=== PATIENT | female | born 1980 | race Caucasian/White ===

== ENCOUNTER → 2017-03-09 | Outpatient (CLI) | payer SELFPAY | LOC: LAB 09:22 | PROVIDERS: ATTEND Obstetrics & Gynecology | DX: O09.521 Supervision of elderly multigravida, first trimester (principal); O09.891 Supervision of other high risk pregnancies, first trimester; Z36 Encounter for antenatal screening of mother; Z3A.17 17 weeks gestation of pregnancy | CPT/HCPCS: 36415; 86850; 87088 ==

== ENCOUNTER 2019-04-24 07:11 | Inpatient (IN) ==
[2019-04-25] MEDS ORDERED: MISOPROSTOL 25 MCG VAGINAL SCH
[2019-04-25] MEDS ORDERED: METHYLERGONOVINE MALEATE 0.2 MG/1 ML VIAL IM PRN (00:01)
[2019-04-25] MEDS ORDERED: FAMOTIDINE 20 MG/2 ML VIAL IVP PRN ×2 (00:01)
[2019-04-25] MEDS ORDERED: Carboprost Inj 250 MCG/ML AMP IM PRN (00:01)
[2019-04-25] MEDS ORDERED: Oxytocin 20 Units + LR 20 UNIT/1,000 ML BAG IV SCH ×2 (00:01→11:30)
[2019-04-25] MEDS ORDERED: Phenylephrine Inj 50 MCG in Sodium Chloride 0.9% vial 0.5 ML IVP PRN (00:01)
[2019-04-25] MEDS ORDERED: fentaNYL Inj 100 MCG/2 ML VIAL IV PRN (00:01)
[2019-04-25] MEDS ORDERED: CefOXitin Inj 2 GM in Sodium Chloride 0.9% 100 ML IV PRN (00:01)
[2019-04-25] MEDS ORDERED: BUTORPHANOL TARTRATE 2 MG/1 ML VIAL IVP PRN (00:01)
[2019-04-25] MEDS ORDERED: Lidocaine 1% 10 MG/ML - 20 ML VIAL SUBCUT PRN (00:01)
[2019-04-25] MEDS ORDERED: ePHEDrine Inj 50 MG/ML AMP IVP PRN (00:01)
[2019-04-25] MEDS ORDERED: Zolpidem Tab 5 MG TAB PO PRN (00:01)
[2019-04-25] MEDS ORDERED: ONDANSETRON 4 MG/2 ML VIAL IVP PRN (00:01)
[2019-04-25] MEDS ORDERED: Naloxone Inj 0.01 MG in Sodium Chloride 0.9% vial 1 ML IVP PRN (00:01)
[2019-04-25] MEDS ORDERED: CALCIUM CARBONATE 500 MG (TUMS) CHEWABLE TABLET PO PRN (00:01)
[2019-04-25] MEDS ORDERED: diphenhydrAMINE 50 MG/1 ML VIAL IVP PRN (00:01)
[2019-04-25] MEDS ORDERED: CITRIC ACID/SODIUM CITRATE 30 ML CUP PO PRN (00:01)
[2019-04-25] MEDS ORDERED: Metoclopramide Inj 10 MG/2 ML VIAL IV PRN (00:01)
[2019-04-25] MEDS ORDERED: TERBUTALINE SULFATE 1 MG/1 ML SDV SUBCUT PRN (00:01)
[2019-04-25] MEDS ORDERED: Nalbuphine Inj 20 MG/ML Ampule IVP PRN (00:01)
[2019-04-25] MEDS ORDERED: MISOPROSTOL 200 MCG TABLET RECTAL PRN (00:01)
[2019-04-25] MEDS ORDERED: OXYTOCIN 10 UNIT/1 ML IM PRN (00:01)
[2019-04-25] MEDS ORDERED: LIDOCAINE HCL 2 % 10 ML JELLY URO-JECT TOPICAL PRN (00:01)
[2019-04-25] MEDS ORDERED: LIDOCAINE W/ SODIUM BICARB 0.5 ML SYR SUBD PRN (00:01)
[2019-04-25] MEDS ORDERED: NALOXONE 0.4 MG/1 ML VIAL IVP PRN (00:01)
[2019-04-25 01:34] LABS: Hematocrit [HCT] 34.8 % (37.0-47.0); Hemoglobin [HGB] 11.3 g/dL (12.0-16.0); MEAN CORPUSCULAR HGB CONC 32.5 g/dL (33-37); MEAN CORPUSCULAR VOLUME 89.2 FL (81-99); MEAN PLATELET VOLUME 8.6 FL (7.4-12.2); RED BLOOD COUNT 3.9 10^6/uL (4.20-5.40)
[2019-04-25] MEDS: MISOPROSTOL VAGINAL PRN ×2 (01:44→06:59)
--- NOTE | 2019-04-25 10:19 | OB.PROGRES ---
Date of Service: 04/25/19 Time of Service: 08:00 Interval History: 38 yo at 39 1/7 weeks gestation admitted last night just after midnight for IOL 2/2 AMA. essentially uncomplicated but notable for 47 lb weight gain. She did not do a 1 hour OGTT 2/2 cost but random fasting fingerstick blood sugars have been normal. GBS negative Rh negative, did not receive rhogam as is Rh negative as well Rubella Immune H/o 5 vaginal deliveries, largest 9 lb 14 oz at 41 weeks gestation. Did require forceps with first delivery, mild shoulder dystocia with last 2. Objective - Cervical Exam Cervical Exam: 50/-2, intact, anterior, soft [place]: q3-5 mins Heart Rate: baseline 130s, mod variability, accels, no decels Heart Rate Interpretation Category: Category I - Labs CBC and BMP: 04/25/19 01:30 - Vital Signs Last Taken Vital Signs: Vital Signs - Last Taken Temperature 97.9 F 04/25/19 08:00 Pulse Rate 77 04/25/19 08:00 Respiratory Rate 14 04/25/19 08:00 Blood Pressure 91/42 04/25/19 08:00 Pulse Ox 99 04/25/19 09:00 Assessment and Plan - Patient Problems (1) Grand multipara Current Visit: Yes Status: Acute Code(s): Z64.1 - Problems related to multiparity - Assessment / Plan Additional Assessment/Plan Details: 38 yo at 39 1/7 weeks gestation by first trimester u/s, admitted for IOL 2/2 AMA. S/p cytotec 25mcg pv x2. Will start pitocin now. Continue close observation.
[2019-04-25] MEDS: Lactated Ringers-OB Dept 1,000 ML PRIMARY IV SCH ×3 (11:02→20:45)
[2019-04-25] MEDS ORDERED: BUPivacaine Inj 0.25% PF - 10ml vial ONE (14:59)
[2019-04-25] MEDS ORDERED: Chloroprocaine 3% MPF (30mg/ml) 20ml vial ONE (14:59)
[2019-04-25] MEDS ORDERED: Sodium Chloride 0.9% vial 10 ML ONE (14:59)
[2019-04-25] MEDS ORDERED: Fent/Bupiv 2mcg/0.0625% Epid 250 ML ONE (15:04)
--- NOTE | 2019-04-25 15:21 | CRNA.PROCE ---
Central Neuraxis Block Placemt - - Type of Block: Epidural Moniters Used During Block: EKG, SPO2, NIBP Positioning: Sitting Skin Prep Used: ChloroPrep Draped: Yes Skin Infiltration - Enter Amount Used in Comment Field: 1% Xylocaine (mL): Yes Number of Centimeters Catheter Threaded: 12 Bioclusive Dressing Applied: Yes Anesthesia Time - Other Weight: 95.708 kg Height: 5 ft 9 in Body Mass Index (BMI): 31.1
[2019-04-25] MEDS ORDERED: fentaNYL 2 MCG/BUPIVACAINE 0.0625%/NS 0.9% 250 ML BAG EPIDURAL SCH (15:30)
[2019-04-25] MEDS ORDERED: Tranexamic Acid 1,000 MG in Sodium Chloride 0.9% 100 ML IV PRN (17:30)
--- NOTE | 2019-04-25 21:33 | OB.PROGRES ---
Date of Service: 04/25/19 Time of Service: 21:27 Interval History: 38 yo at 39 1/7 weeks gestation admitted for IOL 2/2 AMA. She received 2 doses of cytotec 25 mcg. Pitocin was started at about 1100. She received her epidural at about 1500. She has been hesitant to allow AROM as she had a bad experierence with her first induction. AROM at 2014, clear fluid. Variable decels were noted after rupture but resolved with position changes. She is comfortable with her epidural. Objective - Cervical Exam Cervical Exam: 70/-2 [place]: q2-5 minutes Heart Rate: baseline 135, mod variability, accels, occasional variable decel Heart Rate Interpretation Category: Category II - Labs CBC and BMP: 04/25/19 01:30 - Vital Signs Last Taken Vital Signs: Vital Signs - Last Taken Temperature 97.5 F 04/25/19 16:00 Pulse Rate 93 04/25/19 19:00 Respiratory Rate 16 04/25/19 19:00 Blood Pressure 84/42 04/25/19 19:00 Pulse Ox 97 04/25/19 19:00 Assessment and Plan - Patient Problems (1) Grand multipara Current Visit: Yes Status: Acute Code(s): Z64.1 - Problems related to multiparity Support Text: at 39 1/7 weeks gestation, IOL for AMA -s/p AROM, clear fluid -Pitocin stopped with recurrent variables, those have since resolved so will titrate up to adequate contractions, place IUPC if needed -Rh neg, Rh negative as well -GBS negative -Continue close observation, expectant management
--- NOTE | 2019-04-25 22:38 | OB.PROGRES ---
Date of Service: 04/25/19 Time of Service: 22:26 Interval History: Feeling more pressure, chills. Objective - Cervical Exam Cervical Exam: /- Heart Rate: baseline 140 , mod variability, accels, variable decels Heart Rate Interpretation Category: Category II - Labs CBC and BMP: 04/25/19 01:30 - Vital Signs Last Taken Vital Signs: Vital Signs - Last Taken Temperature 97.5 F 04/25/19 16:00 Pulse Rate 94 04/25/19 21:00 Respiratory Rate 16 04/25/19 21:00 Blood Pressure 84/42 04/25/19 21:00 Pulse Ox 98 04/25/19 21:00 Assessment and Plan - Patient Problems (1) Grand multipara Current Visit: Yes Status: Acute Code(s): Z64.1 - Problems related to multiparity Support Text: IUPC placed, will titrate pitocin to adequate contractions Expectant management
[2019-04-25] MEDS: Oxytocin 20 Units + LR 20 UNIT/1,000 ML BAG IV SCH ×2 (22:55→23:40)
--- NOTE | 2019-04-26 00:08 | OB.DEL.SUM ---
Delivery Note Delivery Summary: 38 yo G6 now P6 was admitted just after midnight for IOL for AMA. She was given 2 doses of 25 mcg cytotec PV, started pitcoin around 1100 and an epidural placed at about 1500. She was hesitant to proceed with AROM 2/2 a bad experience previously, but did allow it at about 2014 when the head was better engaged and she was 6 cm dilated. Recurrent variables were noted after AROM, but resolved with position changes. She progressed to complete and at 2254 pushed with one contraction to the delivery via normal vaginal delivery of a TAGA male infant in [place] position over an intact perineum with epidural anesthesia. A single nuchal cord was noted and easily reduced prior to the atraumatic delivery of his head, shoulders, and body. was placed on moms chest. Cord clamping was delayed approx. 1 minute. Cord was doubly clamped and cut by the father Sumanth. Cord gases and cord blood were collected. Her placenta delivered spontaneously, intact, with 3-vessel cord at 2258. She did have a 1st degree perineal laceration that was repaired in standard fashion with a 3-0 vicryl rapide. Fundal massage at that point did produce a couple of moderate sized clots despite a firm uterus. EBL 400 cc. Given h/o pph in this grand multip, with several clots already, I did place 800mcg of cytotec pv. Mom and baby tolerated delivery well. Apgars 9, 10. - Patient Problems (1) Grand multipara Current Visit: Yes Status: Acute Code(s): Z64.1 - Problems related to multiparity (2) Advanced maternal age (AMA) in Current Visit: Yes Status: Acute
[2019-04-26] MEDS ORDERED: LIDOCAINE HCL 2 % 10 ML JELLY URO-JECT TOPICAL PRN (00:52)
[2019-04-26] MEDS ORDERED: GLYCERIN/WITCH HAZEL 1 BOX TOPICAL PRN (00:52)
[2019-04-26] MEDS ORDERED: ONDANSETRON 4 MG/2 ML VIAL IVP PRN (00:52)
[2019-04-26] MEDS ORDERED: Ondansetron ODT Tab 4 MG TAB PO PRN (00:52)
[2019-04-26] MEDS ORDERED: Nalbuphine Inj 20 MG/ML Ampule IVP PRN (00:52)
[2019-04-26] MEDS ORDERED: LANOLIN HPA 40 GM TUBE TOPICAL PRN (00:52)
[2019-04-26] MEDS ORDERED: BENZOCAINE/MENTHOL SPRAY 56 GM BOTTLE TOPICAL PRN (00:52)
[2019-04-26] MEDS: IBUPROFEN 800 MG TABLET PO PRN ×2 (01:08→11:25)
[2019-04-26] MEDS: OXYCODONE PO PRN ×2 (02:30→15:40)
[2019-04-26] MEDS: APAP PO PRN ×2 (02:30→15:40)
[2019-04-26 05:23] LABS: Hematocrit [HCT] 32.1 % (37.0-47.0); Hemoglobin [HGB] 10.3 g/dL (12.0-16.0); MEAN CORPUSCULAR HGB CONC 32.1 g/dL (33-37); MEAN CORPUSCULAR VOLUME 89.7 FL (81-99); MEAN PLATELET VOLUME 9.1 FL (7.4-12.2); RED BLOOD COUNT 3.58 10^6/uL (4.20-5.40)
[2019-04-26] MEDS: oxyCODONE-ACETAMINOPHEN 5-325 TAB PO PRN ×2 (07:42→11:39)
--- NOTE | 2019-04-26 08:27 | CRNA.PROGR ---
Anesthesia Note - Progress Notes Anesthesia Progress Note: Epidural removed, tip intact, pt ambulating without difficulty, no residual block. Follow up at pt/OB request PRN
[2019-04-26 13:22] VITALS: BP 107/58; RESP 16; TEMP 98; O2SAT 99
--- NOTE | 2019-04-26 17:25 | DCSUMMARY ---
Hospitalization Summary Admit Date: 04/25/19 Discharge Date: 04/26/19 Primary Diagnosis:: s/p Delivery Type: Vaginal Hospital Course: 38 yo G7 now [id number] was admitted at 39 2/7 weeks gestation for IOL for advanced maternal age. Cytotec was used for cervical ripening, and then once her cervix was favorable we started pitocin. She progressed slowly thorugh the day, then much more rapidly after AROM. At 2254 on 04/25/19 she delivered a 8 lb 5.4 oz male infant. Delivery notable only for a nuchal cord x1 that was easily reduced prior to delivery of the body and then a 1st degree laceration that was repaired in routine fashion. She did also receive a dose of pv cytotec as she passed a few clots shortly after delivery. / Postop Complications: none apparent [place] Complications: Very mild hypoglycemia to 39 at the lowest Exam - Vitals Vital Signs: Vital Signs Temperature 98.0 F Temperature Source Temporal Artery Scan Pulse Rate [Pulse Oximeter 61 Right] Pulse Rate [Rt hand] 94 Pulse Rate 94 Respiratory Rate 16 Blood Pressure [Right Arm] 107/58 Blood Pressure 98/56 Pulse Ox [Rt hand] 98 Pulse Ox 99 Oxygen Flow Rate 0 Oxygen Delivery Method [Rt Room Air hand] Oxygen Delivery Method Room Air Height 5 ft 9 in Weight 211 lb - General General Appearance: No Acute Distress, Cooperative - Head Head Exam: Normal Inspection - Eye Eye Exam: POSITIVE: Normal Appearance - Respiratory Respiratory Exam: POSITIVE: Clear to Auscultation - Bilaterally, Breathing Non Labored. NEGATIVE: Rales, Rhonci, Crackles, Wheezes - Cardiovascular Cardiovascular Exam: POSITIVE: RRR - GI/Abdominal GI/Abdominal Exam: POSITIVE: Normal Bowel Sounds Additional GI/Abdominal Exam Details: uterus firm - Extremities Extremities Exam: POSITIVE: Normal Inspection, No Edema Present. NEGATIVE: Calf Tenderness - Neurological Neurological Exam: POSITIVE: Alert, Oriented x 3 - Psychiatric Psychiatric Exam: POSITIVE: Normal Affect, Normal Mood - Integumentary Integumentary Exam: POSITIVE: Normal Color Data Peritnent Studies: 04/25/19 04/26/19 01:30 05:00 WBC 8.27 11.00 H Hgb 11.3 L 10.3 L Hct 34.8 L 32.1 L Plt Count 201 203 Patient Problems - Patient Problem List (1) Grand multipara Current Visit: Yes Status: Acute Code(s): Z64.1 - Problems related to multiparity Category: Medical (2) Advanced maternal age (AMA) in Current Visit: Yes Status: Acute Support Text: 38 yo , PPD 1 s/p -Breast feeding well -Pain well controlled, has needed occ percocet for cramping -Rh negative, Dad and both Rh negative so Rhogam not given -F/u with Dr. William 6 weeks pp -To continue percocet (rx'd by Dr. William prior to delivery), ibuprofen, colace, ferrous gluconate, pnv Category: Medical
[2019-04-26] MEDS ORDERED: oxyCODONE-ACETAMINOPHEN 5-325 TAB PO PRN (20:17)
== END 2019-04-26 21:30 | disposition home or self-care (01) | DRG 807 ==
LOC: OBIP 04-25 00:50
PROVIDERS: ADMIT Student in an Organized Health Care Education/Training Program; ATTEND Student in an Organized Health Care Education/Training Program